=== PATIENT | female | born 1975 | race Two or more races ===

== ENCOUNTER → 2025-01-04 | Outpatient (CLI) | payer MEDICAID, SELFPAY ==
--- NOTE | 2025-01-04 10:30 | XR_ITS ---
Examination: Abdomen sonogram, complete Date and time of exam: January 04, 2025, 1047 hours INDICATIONS: Left flank pain beginning several months ago. Technique: Multiple real-time grayscale transabdominal sonographic images of the abdomen have been obtained. Findings: Normal gallbladder Normal common bile duct 0.5 cm Pancreatic head 2.6 cm Aorta mid and distal visualized not enlarged Liver 13.9 cm fatty infiltration Normal hepatopetal portal venous flow Patent IVC Right kidney 11.7 cm renal cortex 1.8 cm Left kidney 10.5 cm renal cortex 1.8 cm Right mild renal scar formation No hydronephrosis IMPRESSION: Normal gallbladder Liver normal size fatty infiltration
== END | disposition home or self-care (01) ==
LOC: CDIM 10:25
DX: K76.0 Fatty (change of) liver, not elsewhere classified (principal)
CPT/HCPCS: 76700